=== PATIENT | female | born 1995 | race Caucasian/White ===

== ENCOUNTER 2019-03-03 09:47 | Emergency (ER) | payer OTHER ==
[2019-03-03 10:21] VITALS: BP 143/97; PULSE 70; TEMP 99.3; BMI 26.5
[2019-03-03 10:42] LABS: BASO % 0.5 % (0-2.0); EOS % 3.3 % (0-4.5); HEMATOCRIT 38.4 % (32.4-45.2); HEMOGLOBIN 12.5 GM/dl (10.7-15.3); LYMPH % 32.7 % (8-40); MCH 26.3 pg (25.7-33.7); MCHC 32.4 g/dl (32.0-36.0); MEAN CELL VOLUME 81.2 fl (80-96); MEAN PLT VOLUME 6.9 fl (7.5-11.1); MONO % 6.2 % (3.8-10.2); NEUT % 57.3 % (42.8-82.8); PLATELET COUNT 415 K/MM3 (134-434); RBC 4.73 M/mm3 (3.60-5.2); RDW 14.2 % (11.6-15.6); WHITE BLOOD COUNT 6.8 K/mm3 (4.0-10.8)
--- NOTE | 2019-03-03 10:53 | PDOC ---
History of Present Illness - General Chief Complaint: ,Possible Stated Complaint: QUESTIONABLE Time Seen by Provider: 03/03/19 09:51 History Source: Patient, Spouse Exam Limitations: No Limitations - History of Present Illness Initial Comments: 03/03/19 10:53 CHIEF COMPLAINT: Late menstrual period with heavier than normal flow HISTORY OF PRESENT ILLNESS: This is a 23-year-old female, , who had irregular periods when she was younger, but has been very regular more recently. She and her have been trying for over the last 6 months. This month, her menstrual period was noted to be late, so she tested her home test every few days. She tested a total of 5 times over the last 2 weeks and it has always been negative. Yesterday she noted some brownish discharge and then started having menstrual bleeding. The bleeding is heavier than normal. This morning when she awoke, there were some clots so she decided to come to the hospital for a checkup. She was concerned about the heavier than normal bleeding. The bleeding is associated with cramping in the suprapubic region in the low back in the midline. She has had menstrual cramps in the past, but not recently. REVIEW OF SYSTEMS: GENERAL/CONSTITUTIONAL: No fever or chills. No weakness. No weight change. HEAD, EYES, EARS, NOSE AND THROAT: No change in vision. No ear pain or discharge. No sore throat. CARDIOVASCULAR: No chest pain or shortness of breath. RESPIRATORY: No cough, wheezing, or hemoptysis. GASTROINTESTINAL: No nausea, vomiting, diarrhea or constipation. No rectal bleeding. GENITOURINARY: No dysuria, frequency, or change in urination. Periods are normally regular, this period is late and heavier than normal. MUSCULOSKELETAL: No joint or muscle swelling or pain. No neck or back pain. SKIN AND BREASTS: Positive acne. NEUROLOGIC: No headache, vertigo, loss of consciousness, or loss of sensation. PSYCHIATRIC: No depression or anxiety. ENDOCRINE: No increased thirst. No abnormal weight change. HEMATOLOGIC/LYMPHATIC: No anemia, easy bleeding, or history of blood clots. ALLERGIC/IMMUNOLOGIC: No hives or skin allergy. No latex allergy. Past History - Past Medical History Allergies/Adverse Reactions: Allergies Allergy/AdvReac Type Severity Reaction Status Date / Time diphenhydramine HCl Allergy Verified 07/12/15 01:31 [From [facility]] Home Medications: Ambulatory Orders NK [No Known Home Medication] 03/03/19 Asthma: No COPD: No - Reproductive History Is Patient Now?: No - Psycho Social/Smoking Cessation Hx Smoking History: Never smoked Have you smoked in the past 12 months: No Information on smoking cessation initiated: No Hx Alcohol Use: No Drug/Substance Use Hx: No *Physical Exam - Vital Signs Last Vital Signs Temp Pulse Resp BP Pulse Ox 99.3 F 70 20 143/97 100 03/03/19 09:48 03/03/19 09:48 03/03/19 09:48 03/03/19 09:48 03/03/19 09:48 - Physical Exam Comments: 03/03/19 10:57 GENERAL: The patient is awake, alert, and fully oriented, in no acute distress. No signs of abdominal cramping or discomfort or pain. HEAD: Normal with no signs of trauma. EYES: Pupils equal, round and reactive to light, extraocular movements intact, sclera anicteric, conjunctiva clear. ENT: Ears normal, nares patent, oropharynx clear without exudates. Moist mucous membranes. NECK: Normal range of motion, supple without lymphadenopathy, JVD, or masses. LUNGS: Breath sounds equal, clear to auscultation bilaterally. No wheezes, and no crackles. HEART: Regular rate and rhythm, normal S1 and S2 without murmur, rub or gallop. ABDOMEN: Soft, minimal suprapubic tenderness, normoactive bowel sounds. No guarding, no rebound. No masses. PELVIC EXAMINATION: External genitalia: Normal without lesions. Modest blood on the external vulva. Vagina: Vaginal vault with some blood, no clots. Cervix: Long and closed with no cervical motion tenderness. Uterus: Nontender, normal in size. Adnexa: Nontender, without masses. EXTREMITIES: Normal range of motion, no edema. No clubbing or cyanosis. No cords, erythema, or tenderness. NEUROLOGICAL: Cranial nerves II through XII grossly intact. Normal speech, normal gait. PSYCH: Normal mood, normal affect. SKIN: Warm, Dry, normal turgor, positive acne on the face. ED Treatment Course - LABORATORY CBC & Chemistry Diagram: 03/03/19 10:39 - ADDITIONAL ORDERS Additional order review: Laboratory Results 03/03/19 03/03/19 10:25 10:25 Urine Color Yellow Urine Appearance Cloudy Urine pH 5.5 Urine Protein Negative Urine Glucose (UA) Negative Urine Ketones Negative Urine Blood 3+ H Urine Nitrite Negative Urine Bilirubin Negative Urine Urobilinogen 0.2 Ur Leukocyte Esterase Negative POC Urine HCG, Qual Negative 03/03/19 10:39 RBC 4.73 MCV 81.2 MCHC 32.4 RDW 14.2 MPV 6.9 L Neutrophils % 57.3 Lymphocytes % 32.7 Monocytes % 6.2 Eosinophils % 3.3 Basophils % 0.5 Medical Decision Making - Medical Decision Making 03/03/19 10:58 Patient is a 23-year-old female with her., 2 weeks late, with heavier than normal bleeding. She has been trying to get for the past 6 months. Her examination is notable for positive menstrual blood in the vaginal vault, but no clots or heavy bleeding. Urinalysis without infection, positive blood consistent with menses Urine testing is negative CBC with no anemia, normal. Impression: Irregular menses with heavier than normal flow, otherwise benign. Plan: Patient advised increased fluids and follow-up with her internal affairs commander. Laboratory Results - last 24 hr 03/03/19 03/03/19 03/03/19 10:25 10:25 10:39 WBC 6.8 RBC 4.73 Hgb 12.5 Hct 38.4 MCV 81.2 MCH 26.3 MCHC 32.4 RDW 14.2 Plt Count 415 MPV 6.9 L Absolute Neuts (auto) 4.0 Neutrophils % 57.3 Lymphocytes % 32.7 Monocytes % 6.2 Eosinophils % 3.3 Basophils % 0.5 Urine Color Yellow Urine Appearance Cloudy Urine pH 5.5 Urine Protein Negative Urine Glucose (UA) Negative Urine Ketones Negative Urine Blood 3+ H Urine Nitrite Negative Urine Bilirubin Negative Urine Urobilinogen 0.2 Ur Leukocyte Esterase Negative Urine RBC >100 Urine WBC 2-5 POC Urine HCG, Qual Negative Discharge - Discharge Information Problems reviewed: Yes Clinical Impression/Diagnosis: Menorrhagia Qualifiers: Menorrahagia type: with irregular cycle Qualified Code(s): N92.1 - Excessive and frequent menstruation with irregular cycle Condition: Good Disposition: HOME - Admission No - Follow up/Referral - Patient Discharge Instructions Patient Printed Discharge Instructions: DI for Menorrhagia Additional Instructions: Today you were evaluated for heavy menstrual bleeding. Your test was negative. Your urine test shows no signs of any infection. The blood test shows no anemia, no significant blood loss. The most likely cause of the heavier than usual menstrual period is normal variation in hormonal levels. You are advised to drink plenty of fluids, and follow-up with your internal affairs commander as you have already scheduled for later this month. If you have worsening, or severe bleeding, or any progressive symptoms, follow-up in the emergency department - Post Discharge Activity
== END 2019-03-03 10:59 | disposition home or self-care (01) ==
LOC: FER 09:47
DX: N92.1 Excessive and frequent menstruation with irregular cycle (principal)
CPT/HCPCS: 36415; 81003; 81015; 81025; 85025; 99282-25

== ENCOUNTER 2021-03-13 22:46 | Emergency (ER) | payer OTHER ==
[2021-03-13 22:54] VITALS: BMI 35.4
[2021-03-13 23:20] VITALS: BP 116/71; PULSE 67; TEMP 99
[2021-03-14 01:41] LABS: EPI CELLS 2 /uL (0-25.1); HYALINE CASTS 0 /uL (0-3.1); URINE RBC 79 /uL (0-23.9); URINE WBC 91 /uL (0-25.8)
[2021-03-14 02:34] LABS: URINE APPEARANCE Clear; URINE BILIRUBIN 3+ (NEGATIVE); URINE COLOR Red; URINE GLUCOSE (UA) 1+ (NEGATIVE); URINE KETONE 1+ (NEGATIVE); URINE LEUK ESTERASE 3+ (NEGATIVE); URINE NITRITE Positive (NEGATIVE); URINE PROTEIN 3+ (NEGATIVE); URINE UROBILINOGEN >=8.0 E.U./dl mg/dL (0.2-1.0)
[2021-03-14 02:35] LABS: URINE CRYSTALS NONE SEEN /hpf
[2021-03-14 02:41] LABS: HCG,QUALITATIVE URINE Borderline hCG level
[2021-03-14] MEDS ORDERED: CIPROFLOXACIN 250 MG TABLET (RESTRICTED TO ID) PO ONE ×2 (03:25→03:29)
== END 2021-03-14 03:32 | disposition home or self-care (01) ==
LOC: FER 22:46
DX: N92.0 Excessive and frequent menstruation with regular cycle (principal); N30.00 Acute cystitis without hematuria
CPT/HCPCS: 76830-TC; 81003; 84703; 87086; 87186; 99284-25